=== PATIENT | male | born 1985 | race African-American/Black ===

== ENCOUNTER 2020-03-24 12:42 | Emergency (ER) | payer OTHER ==
[~2020-03-24] VITALS: Ht 185.4 cm; Wt 122.2 kg
[2020-03-24] MEDS ORDERED: lisinopriL 20 MG TAB PO ONE (13:00)
[2020-03-24] MEDS ORDERED: lisinopriL 40 MG TAB PO ONE (13:30)
[2020-03-24] MEDS ORDERED: hydroCHLOROthiazide 12.5 MG CAPSULE PO ONE (13:30)
--- NOTE | 2020-03-24 13:35 | REP ---
INDICATION: uncontrolled HTN; right sided chest pain COMPARISON: None. TECHNIQUE: Portable AP view of the chest FINDINGS: The mediastinum and cardiac silhouette are stable and within normal limits for portable technique. The lung lemons are clear without acute consolidation, effusion, or pneumothorax. Skeletal structures are intact. IMPRESSION: No acute cardiopulmonary process appreciated. <Electronically signed by Senthil Fierro > 03/24/20 [id number]
[2020-03-24 13:50] LABS: HEMOGLOBIN 16.4 g/dl (13.5-17.5); MEAN CORPUSCULAR HEMOGLOBIN 27.1 pg (27.0-33.0); MEAN CORPUSCULAR HGB CONC 32.8 g/dl (32.0-36.5); MEAN CORPUSCULAR VOLUME 82.6 fl (80.0-96.0); PLATELET COUNT, AUTOMATED 286 10^3/uL (150-450); RED BLOOD COUNT 6.05 10^6/uL (4.30-6.10); WHITE BLOOD COUNT 10.4 10^3/uL (4.0-10.0)
[2020-03-24] MEDS ORDERED: ADAL60TA PO (14:08)
[2020-03-24] MEDS ORDERED: HYDR25TAB PO (14:08)
[2020-03-24] MEDS ORDERED: CITA20TA6 PO (14:08)
[2020-03-24] MEDS ORDERED: HYDR-3363 PO (14:08)
[2020-03-24] MEDS ORDERED: ROPI0.5T3 PO (14:08)
[2020-03-24] MEDS ORDERED: LISI40TA PO ×2 (14:08→16:53)
[2020-03-24 14:09] LABS: AMPHETAMINES LEVEL URINE NEGATIVE (NEGATIVE); BARBITURATES URINE NEGATIVE (NEGATIVE); BENZODIAZEPINES URINE NEGATIVE (NEGATIVE); CANNABINOIDS URINE POSITIVE (NEGATIVE); COCAINE METABOLITE URINE NEGATIVE (NEGATIVE); METHADONE URINE NEGATIVE (NEGATIVE); OPIATES URINE NEGATIVE (NEGATIVE); PHENCYCLIDINE URINE NEGATIVE (NEGATIVE)
[2020-03-24 14:12] LABS: CK-MB VALUE MASS 1.2 NG/ML (<3.6); CPK CREATINE PHOSPHOKINASE 581 U/L (39-308); MB/CK RELATIVE INDEX 0.21 (< OR =4); TROPONIN I < 0.02 NG/ML (< 0.10)
[2020-03-24 14:25] LABS: ACETAMINOPHEN LEVEL < 2.0 UG/ML (10.0-30.0); ALBUMIN 4.4 GM/DL (3.2-5.2); ALT/SGPT 30 U/L (12-78); BILIRUBIN,DIRECT 0.2 MG/DL (0.0-0.2); BILIRUBIN,TOTAL 0.5 MG/DL (0.2-1.0); BLOOD UREA NITROGEN 16 MG/DL (7-18); CALCIUM LEVEL 9.5 MG/DL (8.5-10.1); CARBON DIOXIDE LEVEL 25 MEQ/L (21-32); CHLORIDE LEVEL 109 MEQ/L (98-107); CPK CREATINE PHOSPHOKINASE 553 U/L (39-308); CREATININE FOR GFR 1.22 MG/DL (0.70-1.30); ETHYL ALCOHOL (ETHANOL) < 0.003 % (0.000-0.010); GLOMERULAR FILTRATION RATE > 60.0 (>60); GLUCOSE, FASTING 90 MG/DL (70-100); SALICYLATE LEVEL 1.9 MG/DL (5.0-30.0); SODIUM LEVEL 139 MEQ/L (136-145); TOTAL PROTEIN 8.3 GM/DL (6.4-8.2)
[2020-03-24 16:02] VITALS: BP 162/102
[2020-03-24] MEDS ORDERED: HYDR12.55 PO (16:53)
--- NOTE | 2020-03-26 09:00 | ECGEPIP ---
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
== END 2020-03-24 17:18 | disposition home or self-care (01) ==
LOC: M ED 12:42
DX: F32.9 Major depressive disorder, single episode, unspecified (principal); I10 Essential (primary) hypertension; F41.9 Anxiety disorder, unspecified; F17.210 Nicotine dependence, cigarettes, uncomplicated; Z79.899 Other long term (current) drug therapy
CPT/HCPCS: 36415; 71045; 80048; 80076; 80307; 82550; 82553; 84443; 84484; 85027; 93005; 99284; G0480